=== PATIENT | male | born 1950 | race Caucasian/White ===

== ENCOUNTER 2016-07-22 08:12 | Emergency (ER) | payer OTHER ==
--- NOTE | 2016-07-22 08:54 | ED NURSING NOTES ---
Clinical Report - Nurses [facility] [address] [place] [address] 07/22/2016 8:15 Patient: MARCIN LOU TRIAGE Triage time 08:25 Jul 22 2016. Acuity: LEVEL 3. Chief Complaint: TESTICULAR PAIN. Alert. KALI COMA SCORE: Kali Coma Scale: 15- eyes open spontaneously (4); best verbal response- oriented x 4 (5); best motor response- obeys commands (6). --08:41 Akhil Roldan R.N. 08:27 07/22/16. BP: 179/76. HR: 70. RR: 16. O2 saturation: 99% on room air. Temp: 99.1 F. Pain level now: 08/26. --08:41 Akhil Roldan R.N. Weight: 56.6 kg stated. Height/Length: 65 inches Per Patient. BMI: 20.8. --08:33 Akhil Roldan R.N. Medications Levothyroxine Sodium Oral 112 mcg, daily. Lisinopril Oral 10 mg, daily. MetFORMIN HCl Oral 500 mg, daily. --08:32 Akhil Roldan R.N. Medication/allergy information source: the patient. --08:41 Akhil Roldan R.N. Allergies No Known Drug Allergy. --08:33 Akhil Roldan R.N. History Arrived by private vehicle. Historian: patient. Unaccompanied. Primary physician (Сергей). ( Scrotal cyst on the (L). Pt states that he noticed a pea-like bump on his scrotum about two weeks ago and he pressed on it and it has started to grow.). Onset. (about 2 weeks ago). ( Scrotal Pain). 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 PAST MEDICAL HX: Immunizations: status is unknown. SOCIAL HX: Never smoker. No infectious disease exposure. ABUSE ASSESSMENT: No report of abuse. FALL RISK ASSESSMENT: Fall risk assessment completed. No fall risk identified. NUTRITIONAL RISK ASSESSMENT: The nutritional risk assessment revealed no deficiencies. FUNCTIONAL ASSESSMENT: Functional assessment: no impairments noted. LEARNING NEEDS ASSESSMENT: The learning needs assessment revealed no barriers. SKIN INTEGRITY ASSESSMENT: Skin integrity risk assessment completed. No skin integrity risk identified. --08:41 Akhil Roldan R.N. Interventions ID band on patient. To treatment room. --08:41 Akhil Roldan R.N. PHYSICAL ASSESSMENT Ambulatory to room. GENERAL / NEURO / PSYCH: Alert. Oriented X 4. HEENT: Mucous membranes are pink. RESPIRATORY: Respirations not labored. Breath sounds within normal limits. CVS: Normal heart rate and rhythm. Capillary refill less than 2 seconds. GI / : Abdomen soft and nontender. Bowel sounds within normal limits. SKIN: Skin is warm and dry. --08:41 Akhil Roldan R.N. NURSING PROGRESS NOTES Reassurance given. Patient identifiers checked. Call light placed in reach. Side rails up x 1. Bed placed in lowest position. Brakes of bed on. Patient ready for evaluation- chart flagged and ED physician notified. --08:42 Akhil Roldan R.N. 08:40. ( Exam by ED MD.). --09:54 Akhil Roldan R.N. DISPOSITION / DISCHARGE Departure time: 854. --09:25 Akhil Roldan R.N. 08:55. Condition at departure: unchanged. No learning barriers present. Discharge instructions provided and reviewed with the patient. Reviewed medication(s) (Continue taking your usual medicatons). Reviewed referral to a surgeon for followup. Patient verbalized understanding. Written instructions provided in Occitan. The patient was discharged by the physician. He was discharged home and unaccompanied at time of discharge. He left the Emergency Department ambulatory and via private vehicle. Patient driving. --09:37 Akhil Roldan R.N. Locked/Released at 07/22/2016 9:56 by Akhil Roldan R.N.
--- NOTE | 2016-07-22 08:54 | ED NURSING NOTES ---
Clinical Report - Nurses [facility] [address] [place] [address] 07/22/2016 8:15 Patient: MARCIN LOU TRIAGE Triage time 08:25 Jul 22 2016. Acuity: LEVEL 3. Chief Complaint: TESTICULAR PAIN. Alert. KALI COMA SCORE: Kali Coma Scale: 15- eyes open spontaneously (4); best verbal response- oriented x 4 (5); best motor response- obeys commands (6). --08:41 Akhil Roldan R.N. 08:27 07/22/16. BP: 179/76. HR: 70. RR: 16. O2 saturation: 99% on room air. Temp: 99.1 F. Pain level now: 08/26. --08:41 Akhil Roldan R.N. Weight: 56.6 kg stated. Height/Length: 65 inches Per Patient. BMI: 20.8. --08:33 Akhil Roldan R.N. Medications Levothyroxine Sodium Oral 112 mcg, daily. Lisinopril Oral 10 mg, daily. MetFORMIN HCl Oral 500 mg, daily. --08:32 Akhil Roldan R.N. Medication/allergy information source: the patient. --08:41 Akhil Roldan R.N. Allergies No Known Drug Allergy. --08:33 Akhil Roldan R.N. History Arrived by private vehicle. Historian: patient. Unaccompanied. Primary physician (Сергей). ( Scrotal cyst on the (L). Pt states that he noticed a pea-like bump on his scrotum about two weeks ago and he pressed on it and it has started to grow.). Onset. (about 2 weeks ago). ( Scrotal Pain). 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 PAST MEDICAL HX: Immunizations: status is unknown. SOCIAL HX: Never smoker. No infectious disease exposure. ABUSE ASSESSMENT: No report of abuse. FALL RISK ASSESSMENT: Fall risk assessment completed. No fall risk identified. NUTRITIONAL RISK ASSESSMENT: The nutritional risk assessment revealed no deficiencies. FUNCTIONAL ASSESSMENT: Functional assessment: no impairments noted. LEARNING NEEDS ASSESSMENT: The learning needs assessment revealed no barriers. SKIN INTEGRITY ASSESSMENT: Skin integrity risk assessment completed. No skin integrity risk identified. --08:41 Akhil Roldan R.N. Interventions ID band on patient. To treatment room. --08:41 Akhil Roldan R.N. PHYSICAL ASSESSMENT Ambulatory to room. GENERAL / NEURO / PSYCH: Alert. Oriented X 4. HEENT: Mucous membranes are pink. RESPIRATORY: Respirations not labored. Breath sounds within normal limits. CVS: Normal heart rate and rhythm. Capillary refill less than 2 seconds. GI / : Abdomen soft and nontender. Bowel sounds within normal limits. SKIN: Skin is warm and dry. --08:41 Akhil Roldan R.N. NURSING PROGRESS NOTES Reassurance given. Patient identifiers checked. Call light placed in reach. Side rails up x 1. Bed placed in lowest position. Brakes of bed on. Patient ready for evaluation- chart flagged and ED physician notified. --08:42 Akhil Roldan R.N. 08:40. ( Exam by ED MD.). --09:54 Akhil Roldan R.N. DISPOSITION / DISCHARGE Departure time: 854. --09:25 Akhil Roldan R.N. 08:55. Condition at departure: unchanged. No learning barriers present. Discharge instructions provided and reviewed with the patient. Reviewed medication(s) (Continue taking your usual medicatons). Reviewed referral to a surgeon for followup. Patient verbalized understanding. Written instructions provided in Syriac. The patient was discharged by the physician. He was discharged home and unaccompanied at time of discharge. He left the Emergency Department ambulatory and via private vehicle. Patient driving. --09:37 Akhil Roldan R.N. Locked/Released at 07/22/2016 9:56 by Akhil Roldan R.N.
--- NOTE | 2016-07-22 08:54 | ED CLINICAL REPORT ---
Clinical Report - Physicians/Mid Levels [facility] [address] [place] [address] 07/22/2016 8:15 Patient: GUCCI LOU Time Seen: 0824; initial patient contact. Arrived- By private vehicle. Historian- patient. HISTORY OF PRESENT ILLNESS Chief Complaint: TENDER AREA. This started about 2 weeks ago; 1st noted as a pea size bump. Pt attempted to express it, nothing came out, but has enlarged since. and is still present and worsening. It was gradual in onset. Not itchy, painful or burning. It has been generalized in location (scrotum). No cause has been identified. Similar symptoms previously: None. Recent medical care: Not recently seen/assessed. REVIEW OF SYSTEMS No fever, chills, abdominal pain, nausea or vomiting. All systems otherwise negative, except as recorded above. PAST HISTORY HTN Hypothyroidism DM. SOCIAL HISTORY Never smoker. ADDITIONAL NOTES The nursing notes have been reviewed with agreement regarding the chief complaint, PMH and patient medications and allergies. PHYSICAL EXAM Vital Signs: 07/22/2016 08:27 BP: 179/76. HR: 70. RR: 16. O2 saturation: 99%. Temp: 99.1 F. Pain level now: 3/10. Have been reviewed. Hypertensive. Heart rate normal. Respiratory rate normal. Temperature normal. Oxygen saturation normal. Appearance: Alert. Oriented X3. No acute distress. Skin: Single small tender indurated area (L scrotum). No fluctuance, pointing, drainage or cellulitis. Neuro: Oriented X 3. PROGRESS AND PROCEDURES Discussed case with on-call health care provider, (call returned 08:53 MARY Hernández for outpt excision). Disposition: Discharged home in good condition. Condition: good. CLINICAL IMPRESSION Sebaceous cyst INSTRUCTIONS Your Current Medications: CONTINUE TAKING THE FOLLOWING MEDICATIONS: Levothyroxine Sodium Oral : 112 mcg daily. Lisinopril Oral : 10 mg daily. MetFORMIN HCl Oral : 500 mg daily. Follow-up: Blood pressure screening was not performed during this visit because the patient has an active diagnosis of hypertension. The patient should follow up with a primary care provider for blood pressure management. Follow-up with: Quincy León MD, General Surgeon, , [facility], [address] [place] [address], [place], [facility] Follow up in about three days. Call for an appointment. (Electronically signed by Gucci Renner Dr. 07/22/2016 9:00)
--- NOTE | 2016-07-22 08:54 | ED CLINICAL REPORT ---
Clinical Report - Physicians/Mid Levels [facility] [address] [place] [address] 07/22/2016 8:15 Patient: GUCCI LOU Time Seen: 0824; initial patient contact. Arrived- By private vehicle. Historian- patient. HISTORY OF PRESENT ILLNESS Chief Complaint: TENDER AREA. This started about 2 weeks ago; 1st noted as a pea size bump. Pt attempted to express it, nothing came out, but has enlarged since. and is still present and worsening. It was gradual in onset. Not itchy, painful or burning. It has been generalized in location (scrotum). No cause has been identified. Similar symptoms previously: None. Recent medical care: Not recently seen/assessed. REVIEW OF SYSTEMS No fever, chills, abdominal pain, nausea or vomiting. All systems otherwise negative, except as recorded above. PAST HISTORY HTN Hypothyroidism DM. SOCIAL HISTORY Never smoker. ADDITIONAL NOTES The nursing notes have been reviewed with agreement regarding the chief complaint, PMH and patient medications and allergies. PHYSICAL EXAM Vital Signs: 07/22/2016 08:27 BP: 179/76. HR: 70. RR: 16. O2 saturation: 99%. Temp: 99.1 F. Pain level now: 3/10. Have been reviewed. Hypertensive. Heart rate normal. Respiratory rate normal. Temperature normal. Oxygen saturation normal. Appearance: Alert. Oriented X3. No acute distress. Skin: Single small tender indurated area (L scrotum). No fluctuance, pointing, drainage or cellulitis. Neuro: Oriented X 3. PROGRESS AND PROCEDURES Discussed case with on-call health care provider, (call returned 08:53 MARY Hernández for outpt excision). Disposition: Discharged home in good condition. Condition: good. CLINICAL IMPRESSION Sebaceous cyst INSTRUCTIONS Your Current Medications: CONTINUE TAKING THE FOLLOWING MEDICATIONS: Levothyroxine Sodium Oral : 112 mcg daily. Lisinopril Oral : 10 mg daily. MetFORMIN HCl Oral : 500 mg daily. Follow-up: Blood pressure screening was not performed during this visit because the patient has an active diagnosis of hypertension. The patient should follow up with a primary care provider for blood pressure management. Follow-up with: Quincy León MD, General Surgeon, , [facility], [address] [place] [address], [place], [facility] Follow up in about three days. Call for an appointment. (Electronically signed by Gucci Renner Dr. 07/22/2016 9:00)
--- NOTE | 2016-07-22 09:56 | ED MED RECONCILIATION SUMMARY ---
Patient: MARCIN LOU Medication Reconciliation Report [facility] VisitID: [id number] [address] [place] [address] 66y, M Registration Date/Time: 07/22/2016 Weight: 56.6 kg Height/Length: 65 in. BMI: 20.8 ALLERGIES: No Known Drug Allergy The patient's Home Medications are listed below: CONTINUE TAKING THE FOLLOWING MEDICATIONS: Levothyroxine Sodium Oral 112 mcg, daily Lisinopril Oral 10 mg, daily MetFORMIN HCl Oral 500 mg, daily The source(s) of the original Home Medication information: patient The following Medications were given to the patient in the Emergency Department: None. The following Medications were prescribed to the patient: None.
--- NOTE | 2016-07-22 09:56 | ED MAR SUMMARY ---
..... Medication Administration Record [facility] [address] [place], [place] [id number] Patient: MARCIN LOU Visit ID: [id number] 66y, M Weight: 56.6 kg Height/Length: 65 in BMI: 20.8 ALLERGIES: No Known Drug Allergy
--- NOTE | 2016-07-22 09:56 | ED MAR SUMMARY ---
..... Medication Administration Record [facility] [address] [place], [place] [id number] Patient: MARCIN LOU Visit ID: [id number] 66y, M Weight: 56.6 kg Height/Length: 65 in BMI: 20.8 ALLERGIES: No Known Drug Allergy
--- NOTE | 2016-07-22 09:56 | ED DISCHARGE INSTRUCTIONS ---
Patient: DASHA GUCCI Jatinder General Instructions [facility] VisitID: [id number] [address] [place], [place] [id number] 66y, M Registration Date/Time: 07/22/2016 Sebaceous cyst INSTRUCTIONS Your Current Medications: CONTINUE TAKING THE FOLLOWING MEDICATIONS: Levothyroxine Sodium Oral : 112 mcg daily. Lisinopril Oral : 10 mg daily. MetFORMIN HCl Oral : 500 mg daily. Follow-up: Blood pressure screening was not performed during this visit because the patient has an active diagnosis of hypertension. The patient should follow up with a primary care provider for blood pressure management. Follow-up with: Quincy León MD, General Surgeon, , [facility], [address] [place] [address] Follow up in about three days. Call for an appointment. ADDITIONAL INFORMATION Sebaceous Cyst [No Infection] A Sebaceous Cyst occurs when the opening of an oil gland in the skin becomes blocked. The gland swells with skin oil and skin cells. As it gets bigger, it appears as a small painless lump under the skin. Unless a sebaceous cyst becomes infected, it is painless and causes no symptoms. Home Care: 1) Clean the cyst area when bathing or showering. 2) Be alert for signs of infection listed below. Follow Up with your doctor or as advised by our staff. Get Prompt Medical Attention if any of the following occur: -- Swelling, redness or pain -- Pus coming from the cyst You have been given the following additional information: Sebaceous Cyst (Electronically signed by Gucci Renner Dr. 07/22/2016 9:00)
--- NOTE | 2016-07-22 09:56 | ED MED RECONCILIATION SUMMARY ---
Patient: MARCIN LOU Medication Reconciliation Report [facility] VisitID: [id number] [address] [address] 66y, M Registration Date/Time: 07/22/2016 Weight: 56.6 kg Height/Length: 65 in. BMI: 20.8 ALLERGIES: No Known Drug Allergy The patient's Home Medications are listed below: CONTINUE TAKING THE FOLLOWING MEDICATIONS: Levothyroxine Sodium Oral 112 mcg, daily Lisinopril Oral 10 mg, daily MetFORMIN HCl Oral 500 mg, daily The source(s) of the original Home Medication information: patient The following Medications were given to the patient in the Emergency Department: None. The following Medications were prescribed to the patient: None.
--- NOTE | 2016-07-22 09:56 | ED DISCHARGE INSTRUCTIONS ---
Patient: DASHA GUCCI Jatinder General Instructions [facility] VisitID: [id number] [address] [place], [place] [id number] 66y, M Registration Date/Time: 07/22/2016 Sebaceous cyst INSTRUCTIONS Your Current Medications: CONTINUE TAKING THE FOLLOWING MEDICATIONS: Levothyroxine Sodium Oral : 112 mcg daily. Lisinopril Oral : 10 mg daily. MetFORMIN HCl Oral : 500 mg daily. Follow-up: Blood pressure screening was not performed during this visit because the patient has an active diagnosis of hypertension. The patient should follow up with a primary care provider for blood pressure management. Follow-up with: Quincy León MD, General Surgeon, , [facility], [address] [place] [address] Follow up in about three days. Call for an appointment. ADDITIONAL INFORMATION Sebaceous Cyst [No Infection] A Sebaceous Cyst occurs when the opening of an oil gland in the skin becomes blocked. The gland swells with skin oil and skin cells. As it gets bigger, it appears as a small painless lump under the skin. Unless a sebaceous cyst becomes infected, it is painless and causes no symptoms. Home Care: 1) Clean the cyst area when bathing or showering. 2) Be alert for signs of infection listed below. Follow Up with your doctor or as advised by our staff. Get Prompt Medical Attention if any of the following occur: -- Swelling, redness or pain -- Pus coming from the cyst You have been given the following additional information: Sebaceous Cyst (Electronically signed by Gucci Renner Dr. 07/22/2016 9:00)
[2016-08-05] MEDS ORDERED: LISINOPRIL10 MG PO (16:10)
[2016-08-05] MEDS ORDERED: METFORMIN HCL500 MG PO (16:10)
[2016-08-05] MEDS ORDERED: LEVOTHYROXINE112 MCG PO (16:10)
== END 2016-07-22 08:55 | disposition home or self-care (01) ==
LOC: ED SRH 08:12
DX: N50.89 Other specified disorders of the male genital organs (principal); E11.9 Type 2 diabetes mellitus without complications; I10 Essential (primary) hypertension; E07.9 Disorder of thyroid, unspecified; Z79.84 Long term (current) use of oral hypoglycemic drugs; Z79.899 Other long term (current) drug therapy